=== PATIENT | female | born 1965 | race Two or more races ===

== ENCOUNTER 2024-02-01 16:58 | Emergency (ER) | payer OTHER ==
[~2024-02-01] VITALS: Ht 157.5 cm; Wt 77.1 kg
[2024-02-01] MEDS ORDERED: GLUMETZA1000 MG (17:32)
[2024-02-01] MEDS ORDERED: TENORMIN100 M1 (17:33)
[2024-02-01] MEDS ORDERED: LOSARTAN POTASS25 MG PO (17:37)
[2024-02-01 20:28] LABS: HEMOGLOBIN 11.7 g/dL (12.0-15.00); MEAN CORPUSCULAR HEMOGLOBIN 30.1 pg (27.00-32.0); MEAN CORPUSCULAR HGB CONC 34.2 g/dl (32.0-36.0); PLATELET COUNT 278 K/uL (150-450); RED BLOOD COUNT 3.87 M/uL (4.00-6.00); RED CELL DISTRIBUTION WIDTH 15.1 % (11.5-14.5)
[2024-02-01 20:50] LABS: PH,URINE 5.5 (5.0-8.0); URINE APPEARANCE Clear; URINE BILIRRUBIN Negative (NEGATIVE); URINE BLOOD Small; URINE COLOR Yellow; URINE GLUCOSE Negative (NEGATIVE); URINE KETONE Negative (NEGATIVE); URINE LEUKOCYTE Trace; URINE NITRATE Negative; URINE PROTEIN Negative (NEGATIVE); URINE UROBILINOGEN 0.2 E.U./dl
[2024-02-01 20:54] LABS: URINE BACTERIA 19.5 uL (0.0-1933); URINE RBC 28.8 uL (0.0-20.8); URINE WBC 29.1 uL (0.0-23.2)
[2024-02-01 21:02] LABS: ALBUMIN 3.9 gm/dL (3.4-5.0); BILIRUBIN TOTAL 0.46 mg/dL (0.3-1.2); CALCIUM 9.5 mg/dL (8.5-10.1); CREATININE SERUM 0.58 mg/dL (0.55-1.02); GFR 107.54; GLOBULINA 3.6 G/DL (2.4-3.5); POTASSIUM 3.57 mEq/L (3.5-5.1); TOTAL PROTEIN 7.5 gm/dL (6.4-8.2)
[2024-02-01 21:11] LABS: URINE CAST 0.44 uL (0.0-1.40)
[2024-02-01] MEDS ORDERED: MACROBID 100 M100 MG PO (23:18)
== END 2024-02-02 00:31 | disposition home or self-care (01) ==
LOC: ER 17:00
PROVIDERS: Preventive Medicine Public Health & General Preventive Medicine
DX: N39.0 Urinary tract infection, site not specified (principal)